=== PATIENT | female | born 1980 | race Caucasian/White ===

== ENCOUNTER 2018-08-23 02:10 | Inpatient (IN) | payer OTHER ==
[2018-08-23] MEDS ORDERED: Nalbuphine 20 MG/ML 1 ML Syringe IVPUSH PRN (02:36)
[2018-08-23] MEDS ORDERED: Sodium Chloride 0.9% 10 ML Syringe FLUSH PRN (02:42)
[2018-08-23] MEDS ORDERED: Lactated Ringers 1,000 ML IV SCH (02:45)
[2018-08-23] MEDS ORDERED: Oxytocin/Lactated Ringers 10 UNIT/1,000 ML BAG IV SCH (02:45)
[2018-08-23] MEDS ORDERED: Labetalol 100 MG Tab PO ONE (02:47)
--- NOTE | 2018-08-23 03:32 | PCM.LDHP ---
L&D History of Present Illness - General Date of Service: 08/23/18 Admit Problem/Dx: Patient Status Order with Admit Dx/Problem 08/23/18 02:44 Patient Status [ADT] Routine Admission Diagnosis/Problem Admission Diagnosis/Problem Source of Information: Patient History Limitations: Reports: No Limitations - History of Present Illness Introduction:: 38-year-old 006 SONI 09/03/18 estimated gestational age 38 weeks and 3 days, patient presented to labor and delivery with history of ruptured membranes spontaneously at 00 45 hours on 08/23/18. At that time when presenting to labor and delivery cervix 3-4 cm dilated. Cephalic presentation by RN exam. Patient has history of allergies to penicillin and sulfa drugs. Patient has been taking Wellbutrin XL 300 mg at at bedtime Patient blood pressure elevated upon presentation to labor and delivery labetalol 100 mg by mouth ordered. Normal reflexes. Patient has been taking metformin but no history of gestational diabetes 500 mg CR daily She is also been taking iron tablets by mouth daily and Colace 1 time per day. Also taking vitamins, she has taken Zofran earlier in for nausea and vomiting. Probiotic also taken but patient 1 capsule by mouth daily and taking vitamin D ergocalciferol 5000 units by mouth once daily and albuterol inhaler as needed 02/27/18 blood type O-positive antibody screen negative hemoglobin/hematocrit 12.3/36.2, rubella immune, test for syphilis IgG and IgM nonreactive, hepatitis B surface antigen nonreactive. HIV negative. TSH and free T4 within normal limits. 06/09/18 hemoglobin 11.7 platelets 320,000, 1 hour OB glucose screen 99, antibody screen negative group B strep negative. Past medical history of abnormal Pap smear. Also history of anemia and urinary stone and depression and obesity and pyelonephritis in the past. Unspecified asthma as well. No history of MRSA Past surgical history includes tonsillectomy and 04/15/2012 Plan delivery. Improves with: Reports: None Worsens with: Reports: None Associated Symptoms: Reports: N - Related Data Allergies/Adverse Reactions: Allergies Allergy/AdvReac Type Severity Reaction Status Date / Time Penicillins Allergy Rash Verified 01/06/16 10:06 Sulfa (Sulfonamide Allergy Rash Verified 01/06/16 10:06 Antibiotics) Home Medications: Home Meds Cefdinir [Omnicef] 300 mg PO 01/06/16 [History] Cholecalciferol (Vitamin D3) [Vitamin D] 01/06/16 [History] Cyanocobalamin (Vitamin B12) [Vitamin B12] 01/06/16 [History] Docusate Sodium [Colace] 100 mg PO DAILY 01/06/16 [History] Folic Acid 0.8 mg PO 01/06/16 [History] Iron 325 mg PO 01/06/16 [History] Pnv95/Iron Fum/Folic Acid [ Caplet] 01/06/16 [History] buPROPion HCl [Wellbutrin Xl] 300 mg PO 01/06/16 [History] metFORMIN [Glucophage XR] 500 mg PO DAILY 01/06/16 [History] Past Medical History Respiratory History: Reports: Asthma, Other (See Below) Other Respiratory History: excercise induced asthma Genitourinary History: Reports: Pyelonephritis, Renal Calculus FALL INTERN History: Reports: , Other (See Below) Other OB/BYN History: history abruptio placenta Abnormal PAP Psychiatric History: Reports: Anxiety, Depression Endocrine/Metabolic History: Reports: Diabetes, Gestational, Other (See Below) Other Endocrine/Metabolic History: with previous pregnancies Hematologic History: Reports: Anemia - Infectious Disease History Infectious Disease History: Reports: Chicken Pox - Past Surgical History HEENT Surgical History: Reports: Tonsillectomy Other HEENT Surgeries/Procedures: tonsillectomy 2011 Social & Family History - Family History Cardiac: Reports: Hypertension (Father, paternal grandfather, paternal uncle and paternal grandmother) Neurological: Reports: Alzheimers Disease (Maternal grandmother) Psychiatric: Reports: Depression (Patient and mother) Endocrine/Metabolic: Reports: Hypothyroidism (Mother) Oncologic: Reports: Colon (Paternal grandfather), Prostate (Paternal grandfather ) H&P Review of Systems - Review of Systems: Review Of Systems: See Below General: Reports: No Symptoms HEENT: Reports: No Symptoms Pulmonary: Reports: No Symptoms Cardiovascular: Reports: No Symptoms Gastrointestinal: Reports: No Symptoms Genitourinary: Reports: No Symptoms Musculoskeletal: Reports: No Symptoms Skin: Reports: No Symptoms Psychiatric: Reports: No Symptoms Neurological: Reports: No Symptoms Hematologic/Lymphatic: Reports: No Symptoms Immunologic: Reports: No Symptoms L&D Exam - Exam Exam: See Below - Vital Signs Vital Signs: Last Vital Signs Temp Pulse 102 H 08/23/18 03:15 Resp BP 154/108 H 08/23/18 03:15 Pulse Ox Weight: 266 lb - OB Specific Fundal Height In cm: 40 Contraction Duration (sec): 60 Contraction Frequency (min): 3 Contraction Intensity: Moderate to Strong Movement: Active Heart Tones: Present Heart Tones per Min: 140 (Cat I reactive) Presentation: Vertex Estimated Weight: 3500 g - Ruvalcaba Score Ruvalcaba Score Cervix Position: Posterior Ruvalcaba Score Consistency: Soft Ruvalcaba Score Effacement: 31-50% Ruvalcaba Score Dilation: 3-4 cm Ruvalcaba Score Infant's Station: -3 Ruvalcaba Score Total: 5 - Exam General: Alert, Oriented HEENT: Conjunctiva Clear, Mucosa Moist & [place], Pupils Equal Neck: Supple, Trachea Midline Lungs: Clear to Auscultation, Normal Respiratory Effort Cardiovascular: Regular Rate, Regular Rhythm GI/Abdominal Exam: Normal Bowel Sounds, Soft, Non-Tender Genitourinary: Normal external exam Extremities: Normal Inspection, Non-Tender, No Pedal Edema, Normal Capillary Refill Skin: Warm, Dry, Intact Neurological: Reflexes Equal Bilateral DTR: 2+: Patella (L), Patella (R) Psychiatric: Alert, Normal Affect, Normal Mood - Patient Data Lab Results Last 24 hrs: Laboratory Results - last 24 hr 08/23/18 Range/Units 03:05 WBC 17.43 H (3.98-10.04) K/mm3 RBC 4.19 (3.98-5.22) M/mm3 Hgb 12.1 (11.2-15.7) gm/L Hct 37.1 (34.1-44.9) % MCV 88.5 (79.4-94.8) fl MCH 28.9 (25.6-32.2) pg MCHC 32.6 (32.2-35.5) g/dl RDW Std Deviation 44.7 (36.4-46.3) fL Plt Count 349 (182-369) K/mm3 MPV 8.9 L (9.4-12.3) fl Neut % (Auto) 71.1 (34.0-71.1) % Lymph % (Auto) 20.8 (19.3-51.7) % [place] % (Auto) 6.8 (4.7-12.5) % Eos % (Auto) 0.9 (0.7-5.8) Baso % (Auto) 0.1 (0.1-1.2) % Neut # (Auto) 12.39 H (1.56-6.13) K/mm3 Lymph # (Auto) 3.62 (1.18-3.74) K/mm3 [place] # (Auto) 1.18 H (0.24-0.36) K/mm3 Eos # (Auto) 0.16 (0.04-0.36) K/mm3 Baso # (Auto) 0.02 (0.01-0.08) K/mm3 Result Diagrams: 08/23/18 03:05 08/23/18 03:05 - Problem List (1) 38 weeks gestation of SNOMED Code(s): 95494618 ICD Code: Z3A.38 - 38 WEEKS GESTATION OF Status: Acute Current Visit: Yes Problem Details: Plan delivery (2) Grand multiparity in labor and delivery, antepartum SNOMED Code(s): 495661732, 597029373 ICD Code: O09.40 - SUPERVISION OF W GRAND MULTIPARITY, UNSP TRIMESTER Status: Acute Current Visit: Yes (3) Rupture of membranes SNOMED Code(s): 067797546 ICD Code: ASD8721 - Status: Acute Current Visit: Yes (4) History of depression SNOMED Code(s): 922881445 ICD Code: Z86.59 - PERSONAL HISTORY OF OTHER MENTAL AND BEHAVIORAL DISORDERS Status: Acute Current Visit: Yes Problem List Initiated/Reviewed/Updated: No Orders Last 24hrs: Active Orders 24 hr Category Date Time Status Patient Status [ADT] Routine ADT 08/23/18 02:44 Active Activity as Tolerated [RC] PFP Care 08/23/18 02:37 Active Communication Order [RC] ASDIRECTED Care 08/23/18 02:37 Active Heart Tones [RC] ASDIRECTED Care 08/23/18 02:45 Active Non Stress Test [RC] PER UNIT ROUTINE Care 08/23/18 02:37 Active Notify Provider [RC] PFP Care 08/23/18 02:37 Active Notify Provider [RC] PRN Care 08/23/18 02:37 Active Peripheral IV Care [RC] . DIRECTED Care 08/23/18 02:45 Active Vital Signs [RC] PER UNIT ROUTINE Care 08/23/18 02:37 Active ALANINE AMINOTRANSFERASE,ALT [CHEM] Stat Lab 08/23/18 03:05 Received ASPARTATE AMNIOTRANSFERASE,AST [CHEM] Stat Lab 08/23/18 03:05 Received BLOOD UREA NITROGEN,BUN [CHEM] Stat Lab 08/23/18 03:05 Received CREATININE W/GFR [CHEM] Stat Lab 08/23/18 03:05 Received LACTATE DEHYDROGENASE,LDH [CHEM] Stat Lab 08/23/18 03:05 Received RAPID PLASMA REAGIN,RPR [CHEM] Routine Lab 08/23/18 03:05 Received URIC ACID [CHEM] Stat Lab 08/23/18 03:05 Received Lactated Ringers [Ringers, Lactated] 1,000 ml Med 08/23/18 02:45 Active IV ASDIRECTED Nalbuphine [Nubain] Med 08/23/18 02:36 Active 10 mg IVPUSH Q2H PRN Oxytocin/Lactated Ringers [Pitocin in LR 10 Units/1,000 Med 08/23/18 02:45 Active ML] 10 unit in 1,000 ml IV .CONTINUOUS Sodium Chloride 0.9% [Saline Flush] Med 08/23/18 02:42 Active 10 ml FLUSH ASDIRECTED PRN Electronic Heart Tones Ext w TOCO [WOMSER] Oth 08/23/18 02:37 Ordered Routine Electronic Heart Tones Internal [WOMSER] Per Unit Oth 08/23/18 02:37 Ordered Routine PIH Panel [OM.PC] Stat Oth 08/23/18 02:42 Ordered Peripheral IV Insertion Adult [OM.PC] Routine Oth 08/23/18 02:37 Ordered Resuscitation Status Routine Resus Stat 08/23/18 02:36 Ordered Medication Orders Lactated Ringer's (Ringers, Lactated) 1,000 mls @ 100 mls/hr IV ASDIRECTED DEEPTI Oxytocin/Lactated Ringer's (Pitocin In Lr 10 Units/1,000 Ml) 10 unit in 1,000 mls @ 500 mls/hr IV .CONTINUOUS DEEPTI Nalbuphine HCl (Nubain) 10 mg IVPUSH Q2H PRN PRN Reason: pain Sodium Chloride (Saline Flush) 10 ml FLUSH ASDIRECTED PRN PRN Reason: Keep Vein Open
--- NOTE | 2018-08-23 04:00 | PCM.DEL ---
L & D Note - General Info Date of Service: 08/23/18 Mother's Due Date: 09/03/18 - Delivery Note Labor: Spontaneous Delivery Outcome: Livebirth (Female liveborn Friday08/23/18 at 0343 hrs. KAVIN under no anesthesia and no lacerations Apgars 8/9 weight 3700 g 8 pounds 2.5 ounces nuchal cord 1 reduced over the head easily. No lacerations) Delivery Method: Spontaneous Vaginal Delivery-Single Infant Delivery Mode: Spontaneous Presentation: Left Occiput Anterior (KAVIN) Nuchal Cord: Present (Times one reduced over the head without difficulty) Prep: Povidone-Iodine (Betadine Anesthesia Type: None Episiotomy Type: None Laceration: None Placenta: Intact, Spontaneous (Spontaneous delivery at 0344 hrs. examined and tacked discarded) Cord: 3 Vessels Estimated Blood Loss: 150 Resuscitation Needed: No [place]: Bulb Syringe, Stimulated, Warmed, [place] Used, Warmer Used Provider: Nabeel Rivera Score 1 min: 8 Score 5 min: 9 - General Info Date of Service: 08/23/18 Functional Status: Reports: Pain Controlled - Review of Systems General: Reports: No Symptoms HEENT: Reports: No Symptoms Pulmonary: Reports: No Symptoms Cardiovascular: Reports: No Symptoms Gastrointestinal: Reports: No Symptoms Genitourinary: Reports: No Symptoms Musculoskeletal: Reports: No Symptoms Skin: Reports: No Symptoms Neurological: Reports: No Symptoms Psychiatric: Reports: No Symptoms - Patient Data Vitals - Most Recent: Last Vital Signs Temp Pulse 102 H 08/23/18 03:15 Resp BP 154/108 H 08/23/18 03:15 Pulse Ox Weight - Most Recent: 266 lb Lab Results Last 24 Hours: Laboratory Results - last 24 hr 08/23/18 08/23/18 Range/Units 03:05 03:05 WBC 17.43 H (3.98-10.04) K/mm3 RBC 4.19 (3.98-5.22) M/mm3 Hgb 12.1 (11.2-15.7) gm/L Hct 37.1 (34.1-44.9) % MCV 88.5 (79.4-94.8) fl MCH 28.9 (25.6-32.2) pg MCHC 32.6 (32.2-35.5) g/dl RDW Std Deviation 44.7 (36.4-46.3) fL Plt Count 349 (182-369) K/mm3 MPV 8.9 L (9.4-12.3) fl Neut % (Auto) 71.1 (34.0-71.1) % Lymph % (Auto) 20.8 (19.3-51.7) % [place] % (Auto) 6.8 (4.7-12.5) % Eos % (Auto) 0.9 (0.7-5.8) Baso % (Auto) 0.1 (0.1-1.2) % Neut # (Auto) 12.39 H (1.56-6.13) K/mm3 Lymph # (Auto) 3.62 (1.18-3.74) K/mm3 [place] # (Auto) 1.18 H (0.24-0.36) K/mm3 Eos # (Auto) 0.16 (0.04-0.36) K/mm3 Baso # (Auto) 0.02 (0.01-0.08) K/mm3 BUN 8 (7-18) mg/dL Creatinine 0.9 (0.55-1.02) mg/dL Est Cr Clr Drug Dosing 86.33 mL/min Estimated GFR (MDRD) > 60 (>60) mL/min Uric Acid 5.5 (2.6-6.0) mg/dL AST 34 (15-37) U/L ALT 38 (14-59) U/L Lactate Dehydrogenase 247 H (81-234) U/L Med Orders - Current: Current Medications Lactated Ringer's (Ringers, Lactated) 1,000 mls @ 100 mls/hr IV ASDIRECTED DEEPTI Oxytocin/Lactated Ringer's (Pitocin In Lr 10 Units/1,000 Ml) 10 unit in 1,000 mls @ 500 mls/hr IV .CONTINUOUS DEEPTI Nalbuphine HCl (Nubain) 10 mg IVPUSH Q2H PRN PRN Reason: pain Sodium Chloride (Saline Flush) 10 ml FLUSH ASDIRECTED PRN PRN Reason: Keep Vein Open Discontinued Medications Labetalol HCl (Normodyne) 100 mg PO ONETIME ONE Stop: 08/23/18 02:48 Last Admin: 08/23/18 03:15 Dose: 100 mg - Exam General: Alert, Oriented HEENT: Pupils Equal, Mucous Membr. Moist/[place] Neck: Supple Lungs: Clear to Auscultation, Normal Respiratory Effort Cardiovascular: Regular Rate, Regular Rhythm GI/Abdominal Exam: Normal Bowel Sounds, Soft, Non-Tender (Female) Exam: Normal External Exam Extremities: Normal Inspection, Normal Range of Motion, Non-Tender, No Pedal Edema, Normal Capillary Refill Skin: Warm, Dry, Intact Neurological: No New Focal Deficit Psy/Mental Status: Alert, Normal Affect, Normal Mood - Problem List & Annotations (1) 38 weeks gestation of SNOMED Code(s): 10194755 Code(s): Z3A.38 - 38 WEEKS GESTATION OF Status: Acute Current Visit: Yes Annotation/Comment:: Plan delivery (2) Grand multiparity in labor and delivery, antepartum SNOMED Code(s): 985591748, 433392622 Code(s): O09.40 - SUPERVISION OF W GRAND MULTIPARITY, UNSP TRIMESTER Status: Acute Current Visit: Yes (3) Rupture of membranes SNOMED Code(s): 053673059 Code(s): OJZ9709 - Status: Acute Current Visit: Yes (4) History of depression SNOMED Code(s): 213763633 Code(s): Z86.59 - PERSONAL HISTORY OF OTHER MENTAL AND BEHAVIORAL DISORDERS Status: Acute Current Visit: Yes (5) Nuchal cord without compression, delivered, current hospitalization SNOMED Code(s): 86607708, 610476898 Code(s): O69.81X0 - LABOR AND DEL COMP BY CORD AROUND NECK, W/O COMPRSN, UNSP Status: Acute Current Visit: Yes - Problem List Review Problem List Initiated/Reviewed/Updated: No - My Orders Last 24 Hours: My Active Orders 08/23/18 02:36 Nalbuphine [Nubain] 10 mg IVPUSH Q2H PRN Resuscitation Status Routine 08/23/18 02:37 Activity as Tolerated [RC] PFP Communication Order [RC] ASDIRECTED Non Stress Test [RC] PER UNIT ROUTINE Notify Provider [RC] PFP Notify Provider [RC] PRN Vital Signs [RC] PER UNIT ROUTINE Electronic Heart Tones Ext w TOCO [WOMSER] Routine Electronic Heart Tones Internal [WOMSER] Per Unit Routine Peripheral IV Insertion Adult [OM.PC] Routine 08/23/18 02:42 Sodium Chloride 0.9% [Saline Flush] 10 ml FLUSH ASDIRECTED PRN PIH Panel [OM.PC] Stat 08/23/18 02:44 Patient Status [ADT] Routine 08/23/18 02:45 Heart Tones [RC] ASDIRECTED Peripheral IV Care [RC] . DIRECTED Lactated Ringers [Ringers, Lactated] 1,000 ml IV ASDIRECTED Oxytocin/Lactated Ringers [Pitocin in LR 10 Units/1,000 ML] 10 unit in 1,000 ml IV .CONTINUOUS 08/23/18 03:05 RAPID PLASMA REAGIN,RPR [CHEM] Routine - Assessment Assessment:: Uncomplicated vaginal delivery spontaneous with nuchal cord times one the lacerations under no anesthesia per patient's choice. - Plan Plan:: Routine care.
[2018-08-23] MEDS: Ibuprofen 600 MG Tab PO PRN ×4 (04:11→19:56)
[2018-08-23] MEDS ORDERED: Acetaminophen 325 MG Tab PO PRN (04:22)
[2018-08-23] MEDS ORDERED: Witch Hazel Medicated Pads 40/Jar TOP PRN (04:22)
[2018-08-23] MEDS ORDERED: Lanolin 100% Cream 7 GM Tube TOP PRN (04:22)
[2018-08-23] MEDS ORDERED: Docusate Sodium 100 MG Cap PO PRN (04:22)
[2018-08-23] MEDS ORDERED: Benzocaine/Menthol 20%-0.5% Spray 56 GM Canister TOP PRN (04:22)
[2018-08-23] MEDS: Labetalol 100 MG Tab PO SCH (16:00)
[2018-08-23] MEDS ORDERED: METFORMIN 500 MG PO SCH (21:00)
[2018-08-23] MEDS ORDERED: Non-Formulary Medication 1 Each (Bupropion Hcl 300 MG) PO SCH (21:00)
[2018-08-24] MEDS: Labetalol 100 MG Tab PO SCH (03:00)
[2018-08-24] MEDS: Ibuprofen 600 MG Tab PO PRN ×2 (03:08→07:07)
--- NOTE | 2018-08-24 08:53 | PCM.DCSUM1 ---
Discharge Summary - Hospital Course Free Text/Narrative:: [facility] LIVE L/D Delivery Note Patient Name: PARAG LEDESMA Date of : 82 Patient Status: Inpatient Attending Provider: Nabeel Rivera Date: 08/23/18 03:54 Initialization Date: 08/23/18 03:54 L & D Note - General Info Date of Service: 08/23/18 Mother's Due Date: 09/03/18 - Delivery Note Labor: Spontaneous Delivery Outcome: Livebirth (Female liveborn Friday08/23/18 at 0343 hrs. KAVIN under no anesthesia and no lacerations Apgars 8/9 weight 3700 g 8 pounds 2.5 ounces nuchal cord 1 reduced over the head easily. No lacerations) Delivery Method: Spontaneous Vaginal Delivery-Single Delivery Mode: Spontaneous Presentation: Left Occiput Anterior (KAVIN) Nuchal Cord: Present (Times one reduced over the head without difficulty) Prep: Povidone-Iodine (Betadine Anesthesia Type: None Episiotomy Type: None Laceration: None Placenta: Intact, Spontaneous (Spontaneous delivery at 0344 hrs. examined and tacked discarded) Cord: 3 Vessels Estimated Blood Loss: 150 Resuscitation Needed: No [place]: Bulb Syringe, Stimulated, Warmed, [place] Used, Warmer Used Provider: Nabeel Rivera Score 1 min: 8 Score 5 min: 9 - General Info Date of Service: 08/23/18 Functional Status: Reports: Pain Controlled - Review of Systems General: Reports: No Symptoms HEENT: Reports: No Symptoms Pulmonary: Reports: No Symptoms Cardiovascular: Reports: No Symptoms Gastrointestinal: Reports: No Symptoms Genitourinary: Reports: No Symptoms Musculoskeletal: Reports: No Symptoms Skin: Reports: No Symptoms Neurological: Reports: No Symptoms Psychiatric: Reports: No Symptoms - Patient Data Vitals - Most Recent: Last Vital Signs Temp Pulse 102 H 08/23/18 03:15 Resp BP 154/108 H 08/23/18 03:15 Pulse Ox Weight - Most Recent: 266 lb Lab Results Last 24 Hours: Laboratory Results - last 24 hr 08/23/18 08/23/18 Range/Units 03:05 03:05 WBC 17.43 H (3.98-10.04) K/mm3 RBC 4.19 (3.98-5.22) M/mm3 Hgb 12.1 (11.2-15.7) gm/L Hct 37.1 (34.1-44.9) % MCV 88.5 (79.4-94.8) fl MCH 28.9 (25.6-32.2) pg MCHC 32.6 (32.2-35.5) g/dl RDW Std Deviation 44.7 (36.4-46.3) fL Plt Count 349 (182-369) K/mm3 MPV 8.9 L (9.4-12.3) fl Neut % (Auto) 71.1 (34.0-71.1) % Lymph % (Auto) 20.8 (19.3-51.7) % [place] % (Auto) 6.8 (4.7-12.5) % Eos % (Auto) 0.9 (0.7-5.8) Baso % (Auto) 0.1 (0.1-1.2) % Neut # (Auto) 12.39 H (1.56-6.13) K/mm3 Lymph # (Auto) 3.62 (1.18-3.74) K/mm3 [place] # (Auto) 1.18 H (0.24-0.36) K/mm3 Eos # (Auto) 0.16 (0.04-0.36) K/mm3 Baso # (Auto) 0.02 (0.01-0.08) K/mm3 BUN 8 (7-18) mg/dL Creatinine 0.9 (0.55-1.02) mg/dL Est Cr Clr Drug Dosing 86.33 mL/min Estimated GFR (MDRD) > 60 (>60) mL/min Uric Acid 5.5 (2.6-6.0) mg/dL AST 34 (15-37) U/L ALT 38 (14-59) U/L Lactate Dehydrogenase 247 H (81-234) U/L Med Orders - Current: Current Medications Lactated Ringer's (Ringers, Lactated) 1,000 mls @ 100 mls/hr IV ASDIRECTED DEEPTI Oxytocin/Lactated Ringer's (Pitocin In Lr 10 Units/1,000 Ml) 10 unit in 1,000 mls @ 500 mls/hr IV .CONTINUOUS DEEPTI Nalbuphine HCl (Nubain) 10 mg IVPUSH Q2H PRN PRN Reason: pain Sodium Chloride (Saline Flush) 10 ml FLUSH ASDIRECTED PRN PRN Reason: Keep Vein Open Discontinued Medications Labetalol HCl (Normodyne) 100 mg PO ONETIME ONE Stop: 08/23/18 02:48 Last Admin: 08/23/18 03:15 Dose: 100 mg - Exam General: Alert, Oriented HEENT: Pupils Equal, Mucous Membr. Moist/[place] Neck: Supple Lungs: Clear to Auscultation, Normal Respiratory Effort Cardiovascular: Regular Rate, Regular Rhythm GI/Abdominal Exam: Normal Bowel Sounds, Soft, Non-Tender (Female) Exam: Normal External Exam Extremities: Normal Inspection, Normal Range of Motion, Non-Tender, No Pedal Edema, Normal Capillary Refill Skin: Warm, Dry, Intact Neurological: No New Focal Deficit Psy/Mental Status: Alert, Normal Affect, Normal Mood - Problem List & Annotations (1) 38 weeks gestation of SNOMED Code(s): 03722838 Code(s): Z3A.38 - 38 WEEKS GESTATION OF Status: Acute Current Visit: Yes Annotation/Comment:: Plan delivery (2) Grand multiparity in labor and delivery, antepartum SNOMED Code(s): 903723719, 868902586 Code(s): O09.40 - SUPERVISION OF W GRAND MULTIPARITY, UNSP TRIMESTER Status: Acute Current Visit: Yes (3) Rupture of membranes SNOMED Code(s): 923352175 Code(s): TZX5910 - Status: Acute Current Visit: Yes (4) History of depression SNOMED Code(s): 907939154 Code(s): Z86.59 - PERSONAL HISTORY OF OTHER MENTAL AND BEHAVIORAL DISORDERS Status: Acute Current Visit: Yes (5) Nuchal cord without compression, delivered, current hospitalization SNOMED Code(s): 86858080, 137473491 Code(s): O69.81X0 - LABOR AND DEL COMP BY CORD AROUND NECK, W/O COMPRSN, UNSP Status: Acute Current Visit: Yes - Problem List Review Problem List Initiated/Reviewed/Updated: No - My Orders Last 24 Hours: My Active Orders 08/23/18 02:36 Nalbuphine [Nubain] 10 mg IVPUSH Q2H PRN Resuscitation Status Routine 08/23/18 02:37 Activity as Tolerated [RC] PFP Communication Order [RC] ASDIRECTED Non Stress Test [RC] PER UNIT ROUTINE Notify Provider [RC] PFP Notify Provider [RC] PRN Vital Signs [RC] PER UNIT ROUTINE Electronic Heart Tones Ext w TOCO [WOMSER] Routine Electronic Heart Tones Internal [WOMSER] Per Unit Routine Peripheral IV Insertion Adult [OM.PC] Routine 08/23/18 02:42 Sodium Chloride 0.9% [Saline Flush] 10 ml FLUSH ASDIRECTED PRN PIH Panel [OM.PC] Stat 08/23/18 02:44 Patient Status [ADT] Routine 08/23/18 02:45 Heart Tones [RC] ASDIRECTED Peripheral IV Care [RC] . DIRECTED Lactated Ringers [Ringers, Lactated] 1,000 ml IV ASDIRECTED Oxytocin/Lactated Ringers [Pitocin in LR 10 Units/1,000 ML] 10 unit in 1,000 ml IV .CONTINUOUS 08/23/18 03:05 RAPID PLASMA REAGIN,RPR [CHEM] Routine - Assessment Assessment:: Uncomplicated vaginal delivery spontaneous with nuchal cord times one the lacerations under no anesthesia per patient's choice. - Plan Plan:: Routine care. HPI Initial Comments: [facility] LIVE L/D Delivery Note Patient Name: PARAG LEDESMA Date of : 82 Patient Status: Inpatient Attending Provider: Nabeel Rivera Date: 08/23/18 03:54 Initialization Date: 08/23/18 03:54 L & D Note - General Info Date of Service: 08/23/18 Mother's Due Date: 09/03/18 - Delivery Note Labor: Spontaneous Delivery Outcome: Livebirth (Female liveborn Friday08/23/18 at 0343 hrs. KAVIN under no anesthesia and no lacerations Apgars 8/9 weight 3700 g 8 pounds 2.5 ounces nuchal cord 1 reduced over the head easily. No lacerations) Delivery Method: Spontaneous Vaginal Delivery-Single Infant Delivery Mode: Spontaneous Presentation: Left Occiput Anterior (KAVIN) Nuchal Cord: Present (Times one reduced over the head without difficulty) Prep: Povidone-Iodine (Betadine Anesthesia Type: None Episiotomy Type: None Laceration: None Placenta: Intact, Spontaneous (Spontaneous delivery at 0344 hrs. examined and tacked discarded) Cord: 3 Vessels Estimated Blood Loss: 150 Resuscitation Needed: No : Bulb Syringe, Stimulated, Warmed, [place] Used, Warmer Used Provider: Nabeel Rivera Score 1 min: 8 Score 5 min: 9 - General Info Date of Service: 08/23/18 Functional Status: Reports: Pain Controlled - Review of Systems General: Reports: No Symptoms HEENT: Reports: No Symptoms Pulmonary: Reports: No Symptoms Cardiovascular: Reports: No Symptoms Gastrointestinal: Reports: No Symptoms Genitourinary: Reports: No Symptoms Musculoskeletal: Reports: No Symptoms Skin: Reports: No Symptoms Neurological: Reports: No Symptoms Psychiatric: Reports: No Symptoms - Patient Data Vitals - Most Recent: Last Vital Signs Temp Pulse 102 H 08/23/18 03:15 Resp BP 154/108 H 08/23/18 03:15 Pulse Ox Weight - Most Recent: 266 lb Lab Results Last 24 Hours: Laboratory Results - last 24 hr 08/23/18 08/23/18 Range/Units 03:05 03:05 WBC 17.43 H (3.98-10.04) K/mm3 RBC 4.19 (3.98-5.22) M/mm3 Hgb 12.1 (11.2-15.7) gm/L Hct 37.1 (34.1-44.9) % MCV 88.5 (79.4-94.8) fl MCH 28.9 (25.6-32.2) pg MCHC 32.6 (32.2-35.5) g/dl RDW Std Deviation 44.7 (36.4-46.3) fL Plt Count 349 (182-369) K/mm3 MPV 8.9 L (9.4-12.3) fl Neut % (Auto) 71.1 (34.0-71.1) % Lymph % (Auto) 20.8 (19.3-51.7) % [place] % (Auto) 6.8 (4.7-12.5) % Eos % (Auto) 0.9 (0.7-5.8) Baso % (Auto) 0.1 (0.1-1.2) % Neut # (Auto) 12.39 H (1.56-6.13) K/mm3 Lymph # (Auto) 3.62 (1.18-3.74) K/mm3 [place] # (Auto) 1.18 H (0.24-0.36) K/mm3 Eos # (Auto) 0.16 (0.04-0.36) K/mm3 Baso # (Auto) 0.02 (0.01-0.08) K/mm3 BUN 8 (7-18) mg/dL Creatinine 0.9 (0.55-1.02) mg/dL Est Cr Clr Drug Dosing 86.33 mL/min Estimated GFR (MDRD) > 60 (>60) mL/min Uric Acid 5.5 (2.6-6.0) mg/dL AST 34 (15-37) U/L ALT 38 (14-59) U/L Lactate Dehydrogenase 247 H (81-234) U/L Med Orders - Current: Current Medications Lactated Ringer's (Ringers, Lactated) 1,000 mls @ 100 mls/hr IV ASDIRECTED DEEPTI Oxytocin/Lactated Ringer's (Pitocin In Lr 10 Units/1,000 Ml) 10 unit in 1,000 mls @ 500 mls/hr IV .CONTINUOUS DEEPTI Nalbuphine HCl (Nubain) 10 mg IVPUSH Q2H PRN PRN Reason: pain Sodium Chloride (Saline Flush) 10 ml FLUSH ASDIRECTED PRN PRN Reason: Keep Vein Open Discontinued Medications Labetalol HCl (Normodyne) 100 mg PO ONETIME ONE Stop: 08/23/18 02:48 Last Admin: 08/23/18 03:15 Dose: 100 mg - Exam General: Alert, Oriented HEENT: Pupils Equal, Mucous Membr. Moist/[place] Neck: Supple Lungs: Clear to Auscultation, Normal Respiratory Effort Cardiovascular: Regular Rate, Regular Rhythm GI/Abdominal Exam: Normal Bowel Sounds, Soft, Non-Tender (Female) Exam: Normal External Exam Extremities: Normal Inspection, Normal Range of Motion, Non-Tender, No Pedal Edema, Normal Capillary Refill Skin: Warm, Dry, Intact Neurological: No New Focal Deficit Psy/Mental Status: Alert, Normal Affect, Normal Mood - Problem List & Annotations (1) 38 weeks gestation of SNOMED Code(s): 84947433 Code(s): Z3A.38 - 38 WEEKS GESTATION OF Status: Acute Current Visit: Yes Annotation/Comment:: Plan delivery (2) Grand multiparity in labor and delivery, antepartum SNOMED Code(s): 956912365, 936008343 Code(s): O09.40 - SUPERVISION OF W GRAND MULTIPARITY, UNSP TRIMESTER Status: Acute Current Visit: Yes (3) Rupture of membranes SNOMED Code(s): 686405921 Code(s): LFW7013 - Status: Acute Current Visit: Yes (4) History of depression SNOMED Code(s): 742092435 Code(s): Z86.59 - PERSONAL HISTORY OF OTHER MENTAL AND BEHAVIORAL DISORDERS Status: Acute Current Visit: Yes (5) Nuchal cord without compression, delivered, current hospitalization SNOMED Code(s): 97191601, 939927276 Code(s): O69.81X0 - LABOR AND DEL COMP BY CORD AROUND NECK, W/O COMPRSN, UNSP Status: Acute Current Visit: Yes - Problem List Review Problem List Initiated/Reviewed/Updated: No - My Orders Last 24 Hours: My Active Orders 08/23/18 02:36 Nalbuphine [Nubain] 10 mg IVPUSH Q2H PRN Resuscitation Status Routine 08/23/18 02:37 Activity as Tolerated [RC] PFP Communication Order [RC] ASDIRECTED Non Stress Test [RC] PER UNIT ROUTINE Notify Provider [RC] PFP Notify Provider [RC] PRN Vital Signs [RC] PER UNIT ROUTINE Electronic Heart Tones Ext w TOCO [WOMSER] Routine Electronic Heart Tones Internal [WOMSER] Per Unit Routine Peripheral IV Insertion Adult [OM.PC] Routine 08/23/18 02:42 Sodium Chloride 0.9% [Saline Flush] 10 ml FLUSH ASDIRECTED PRN PIH Panel [OM.PC] Stat 08/23/18 02:44 Patient Status [ADT] Routine 08/23/18 02:45 Heart Tones [RC] ASDIRECTED Peripheral IV Care [RC] . DIRECTED Lactated Ringers [Ringers, Lactated] 1,000 ml IV ASDIRECTED Oxytocin/Lactated Ringers [Pitocin in LR 10 Units/1,000 ML] 10 unit in 1,000 ml IV .CONTINUOUS 08/23/18 03:05 RAPID PLASMA REAGIN,RPR [CHEM] Routine - Assessment Assessment:: Uncomplicated vaginal delivery spontaneous with nuchal cord times one the lacerations under no anesthesia per patient's choice. - Plan Plan:: Routine care. Brief History: [facility] LIVE . L/D Delivery Note. Patient Name: PARAG LEDESMAical Record Number: [id number]. Date of : Patient Status: Inpatient. Attending Provider: Nabeel Riveraount Number: [id number]. Date: 08/23/18 03:54Initialization Date: 08/23/18 03:54. L & D Note. - General Info. Date of Service: 08/23/18. Mother's Due Date: 09/03/18. - Delivery Note. Labor: Spontaneous. Delivery Outcome: Livebirth ( Female liveborn Friday08/23/18 at 0343 hrs. KAVIN under no anesthesia and no lacerations Apgars 8/9 weight 3700 g 8 pounds 2.5 ounces nuchal cord 1 reduced over the head easily. No lacerations). Infant Delivery Method: Spontaneous Vaginal Delivery-Single. Delivery Mode: Spontaneous. Presentation : Left Occiput Anterior (KAVIN). Nuchal Cord: Present (Times one reduced over the head without difficulty). Prep: Povidone-Iodine (Betadine. Anesthesia Type : None. Episiotomy Type: None. Laceration: None. Placenta: Intact, Spontaneous (Spontaneous delivery at 0344 hrs. examined and tacked discarded). Cord: 3 Vessels. Estimated Blood Loss: 150. Resuscitation Needed: No. : Bulb Syringe, Stimulated, Warmed, [place] Used, Warmer Used. Provider: Nabeel Rivera. Score 1 min: 8. Score 5 min: 9. - General Info. Date of Service: 08/23/18. Functional Status: Reports: Pain Controlled. - Review of Systems. General: Reports: No Symptoms. HEENT: Reports: No Symptoms. Pulmonary: Reports: No Symptoms. Cardiovascular: Reports : No Symptoms. Gastrointestinal: Reports: No Symptoms. Genitourinary: Reports : No Symptoms. Musculoskeletal: Reports: No Symptoms. Skin: Reports: No Symptoms. Neurological: Reports: No Symptoms. Psychiatric: Reports: No Symptoms. - Patient Data. Vitals - Most Recent: Last Vital Signs. Temp. Pulse 102 H 08/23/18 03:15. Resp. BP 154/108 H 08/23/18 03:15. Pulse Ox. Weight - Most Recent: 266 lb. Lab Results Last 24 Hours: Laboratory Results - last 24 hr. 08/24/1903Range/Units. 03:0503:05. WBC 17.43 H (3.98-10.04 ) K/mm3. RBC 4.19 (3.98-5.22) M/mm3. Hgb 12.1 (11.2-15.7) gm/L. Hct 37.1 ( 34.1-44.9) %. MCV 88.5 (79.4-94.8) fl. MCH 28.9 (25.6-32.2) pg. MCHC 32.6 (32.2-35.5) g/dl. RDW Std Deviation 44.7 (36.4-46.3) fL. Plt Count 349 (182- 369) K/mm3. MPV 8.9 L (9.4-12.3) fl. Neut % (Auto) 71.1 (34.0-71.1) %. Lymph % (Auto) 20.8 (19.3-51.7) %. [place] % (Auto) 6.8 (4.7-12.5) %. Eos % ( Auto) 0.9 (0.7-5.8). Baso % (Auto) 0.1 (0.1-1.2) %. Neut # (Auto) 12.39 H ( 1.56-6.13) K/mm3. Lymph # (Auto) 3.62 (1.18-3.74) K/mm3. [place] # (Auto) 1.18 H (0.24-0.36) K/mm3. Eos # (Auto) 0.16 (0.04-0.36) K/mm3. Baso # (Auto) 0.02 (0.01-0.08) K/mm3. BUN 8 (7-18) mg/dL. Creatinine 0.9 (0.55-1.02) mg/ dL. Est Cr Clr Drug Dosing 86.33 mL/min. Estimated GFR (MDRD) > 60 (>60) mL/ min. Uric Acid 5.5 (2.6-6.0) mg/dL. AST 34 (15-37) U/L. ALT 38 (14-59) U/ L. Lactate Dehydrogenase 247 H (81-234) U/L. Med Orders - Current: Current Medications. Lactated Ringer's (Ringers, Lactated) 1,000 mls @ 100 mls/hr IV ASDIRECTED DEEPTI. Oxytocin/Lactated Ringer's (Pitocin In Lr 10 Units/1,000 Ml) 10 unit in 1,000 mls @ 500 mls/hr IV .CONTINUOUS DEEPTI. Nalbuphine HCl (Nubain) 10 mg IVPUSH Q2H PRN. PRN Reason: pain. Sodium Chloride (Saline Flush) 10 ml FLUSH ASDIRECTED PRN. PRN Reason: Keep Vein Open. Discontinued Medications. Labetalol HCl (Normodyne) 100 mg PO ONETIME ONE. Stop: 08/23/18 02:48. Last Admin: 08/23/18 03:15 Dose: 100 mg. - Exam. General: Alert, Oriented. HEENT : Pupils Equal, Mucous Membr. Moist/[place]. Neck: Supple. Lungs: Clear to Auscultation, Normal Respiratory Effort. Cardiovascular: Regular Rate, Regular Rhythm. GI/Abdominal Exam: Normal Bowel Sounds, Soft, Non-Tender. (Female) Exam: Normal External Exam. Extremities: Normal Inspection, Normal Range of Motion, Non-Tender, No Pedal Edema, Normal Capillary Refill. Skin: Warm, Dry, Intact. Neurological: No New Focal Deficit. Psy/Mental Status: Alert, Normal Affect, Normal Mood. - Problem List & Annotations. (1) 38 weeks gestation of . SNOMED Code(s): 82983120. Code(s): Z3A.38 - 38 WEEKS GESTATION OF Status: Acute Current Visit: Yes Annotation/Comment:: Plan delivery. (2) Grand multiparity in labor and delivery, antepartum. SNOMED Code (s): 351220210, 936662505. Code(s): O09.40 - SUPERVISION OF W GRAND MULTIPARITY, UNSP TRIMESTER Status: Acute Current Visit: Yes. (3) Rupture of membranes. SNOMED Code(s): 695157953. Code(s): LDI5999 - Status: Acute Current Visit: Yes. (4) History of depression. SNOMED Code(s): 844482410. Code(s): Z86.59 - PERSONAL HISTORY OF OTHER MENTAL AND BEHAVIORAL DISORDERS Status: Acute Current Visit: Yes. (5) Nuchal cord without compression, delivered, current hospitalization. SNOMED Code(s): 72649117, 611994256. Code(s): O69.81X0 - LABOR AND DEL COMP BY CORD AROUND NECK, W/O COMPRSN, UNSP Status: Acute Current Visit: Yes. - Problem List Review. Problem List Initiated/Reviewed/Updated: No. - My Orders. Last 24 Hours: My Active Orders. 08/23/18 02:36. Nalbuphine [Nubain] 10 mg IVPUSH Q2H PRN. Resuscitation Status Routine. 08/23/18 02:37. Activity as Tolerated [RC] PFP. Communication Order [RC] ASDIRECTED. Non Stress Test [RC] PER UNIT ROUTINE. Notify Provider [RC] PFP. Notify Provider [RC] PRN. Vital Signs [RC ] PER UNIT ROUTINE. Electronic Heart Tones Ext w TOCO [WOMSER] Routine. Electronic Heart Tones Internal [WOMSER] Per Unit Routine. Peripheral IV Insertion Adult [OM.PC] Routine. 08/23/18 02:42. Sodium Chloride 0.9% [Saline Flush] 10 ml FLUSH ASDIRECTED PRN. PIH Panel [OM.PC] Stat. 08/23/18 02:44. Patient Status [ADT] Routine. 08/23/18 02:45. Heart Tones [RC] ASDIRECTED. Peripheral IV Care [RC] . DIRECTED. Lactated Ringers [Ringers, Lactated] 1,000 ml IV ASDIRECTED. Oxytocin/Lactated Ringers [Pitocin in LR 10 Units/1,000 ML] 10 unit in 1,000 ml IV .CONTINUOUS. 08/23/18 03:05. RAPID PLASMA REAGIN,RPR [CHEM] Routine. - Assessment. Assessment:: Uncomplicated vaginal delivery spontaneous with nuchal cord times one the lacerations under no anesthesia per patient's choice. - Plan. Plan:: Routine care. Diagnosis: Stroke: No - Discharge Data Discharge Date: 08/24/18 Discharge Disposition: Home, Self-Care 01 Condition: Good - Discharge Diagnosis/Problem(s) (1) 38 weeks gestation of SNOMED Code(s): 00159170 ICD Code: Z3A.38 - 38 WEEKS GESTATION OF Status: Acute Current Visit: Yes Problem Details: Plan delivery (2) Grand multiparity in labor and delivery, antepartum SNOMED Code(s): 149578924, 507637209 ICD Code: O09.40 - SUPERVISION OF W GRAND MULTIPARITY, UNSP TRIMESTER Status: Acute Current Visit: Yes (3) Rupture of membranes SNOMED Code(s): 589393291 ICD Code: RLH9329 - Status: Acute Current Visit: Yes (4) History of depression SNOMED Code(s): 974039401 ICD Code: Z86.59 - PERSONAL HISTORY OF OTHER MENTAL AND BEHAVIORAL DISORDERS Status: Acute Current Visit: Yes (5) Nuchal cord without compression, delivered, current hospitalization SNOMED Code(s): 99640636, 808426253 ICD Code: O69.81X0 - LABOR AND DEL COMP BY CORD AROUND NECK, W/O COMPRSN, UNSP Status: Acute Current Visit: Yes (6) Transient hypertension of , antepartum SNOMED Code(s): 342779528 ICD Code: O13.9 - GESTATIONAL HTN W/O SIGNIFICANT PROTEINURIA, UNSP TRIMESTER Status: Acute Current Visit: Yes - Patient Summary/Data Complications: None Consults: None Hospital Course: Uneventful - Patient Instructions Diet: Usual Diet as Tolerated Driving: Do Not Drive (48 hours) Showering/Bathing: May Shower Notify Provider of: Fever, Increased Pain, Swelling and Redness, Drainage, Nausea and/or Vomiting - Discharge Plan *PRESCRIPTION DRUG MONITORING PROGRAM REVIEWED*: No *COPY OF PRESCRIPTION DRUG MONITORING REPORT IN PATIENT MELANIE: No Home Medications: Home Meds Cholecalciferol (Vitamin D3) [Vitamin D] 01/06/16 [History] Cyanocobalamin (Vitamin B12) [Vitamin B12] 01/06/16 [History] Docusate Sodium [Colace] 100 mg PO DAILY 09/03/16 [History] Folic Acid 0.8 mg PO 01/06/16 [History] Iron 325 mg PO 01/06/16 [History] Pnv95/Iron Fum/Folic Acid [ Caplet] 01/06/16 [History] buPROPion HCl [Wellbutrin Xl] 300 mg PO 01/06/16 [History] metFORMIN [Glucophage XR] 500 mg PO DAILY 01/06/16 [History] Acetaminophen [Tylenol] 650 mg PO Q6H PRN tablet 08/24/18 [Rx] Benzocaine/Menthol [Dermoplast Pain Relief [place]] 1 spray TOP ASDIRECTED PRN canister 08/24/18 [Rx] Docusate Sodium [Colace] 100 mg PO BID PRN cap 08/24/18 [Rx] Ibuprofen [Motrin] 600 mg PO Q6H PRN tablet 08/24/18 [Rx] Lanolin [Lansinoh HPA] 1 applic TOP ASDIRECTED PRN #1 tube 08/24/18 [Rx] Witjessica Lori [Tucks] 1 pad TOP ASDIRECTED PRN pad 08/24/18 [Rx] Referrals: Delaney Mondragon MD [Primary Care Provider] - (To call for follow-up appointment) - Discharge Summary/Plan Comment DC Time >30 min.: No - Patient Data Vitals - Most Recent: Last Vital Signs Temp 97.3 F 08/24/18 03:09 Pulse 85 08/24/18 03:09 Resp 14 08/24/18 03:09 BP 142/61 H 08/24/18 03:09 Pulse Ox 98 08/24/18 03:09 Weight - Most Recent: 266 lb Lab Results - Last 24 hrs: Laboratory Results - last 24 hr 08/23/18 08/24/18 Range/Units 03:05 06:26 WBC 11.97 H (3.98-10.04) K/mm3 RBC 3.59 L (3.98-5.22) M/mm3 Hgb 10.3 L D (11.2-15.7) gm/L Hct 32.6 L (34.1-44.9) % MCV 90.8 (79.4-94.8) fl MCH 28.7 (25.6-32.2) pg MCHC 31.6 L (32.2-35.5) g/dl RDW Std Deviation 45.5 (36.4-46.3) fL Plt Count 258 (182-369) K/mm3 MPV 9.1 L (9.4-12.3) fl Neut % (Auto) 72.2 H (34.0-71.1) % Lymph % (Auto) 16.9 L (19.3-51.7) % [place] % (Auto) 8.2 (4.7-12.5) % Eos % (Auto) 2.1 (0.7-5.8) Baso % (Auto) 0.2 (0.1-1.2) % Neut # (Auto) 8.65 H (1.56-6.13) K/mm3 Lymph # (Auto) 2.02 (1.18-3.74) K/mm3 [place] # (Auto) 0.98 H (0.24-0.36) K/mm3 Eos # (Auto) 0.25 (0.04-0.36) K/mm3 Baso # (Auto) 0.02 (0.01-0.08) K/mm3 RPR Non-reactive (NONREACTIVE) Med Orders - Current: Current Medications Acetaminophen (Tylenol) 650 mg PO Q4H PRN PRN Reason: mild pain or fever Benzocaine/Menthol (Dermoplast Pain Relief [place]) 0 gm TOP ASDIRECTED PRN PRN Reason: Perineal Comfort Measure Docusate Sodium (Colace) 100 mg PO BID PRN PRN Reason: Constipation Emollient Ointment (Lansinoh Hpa) 0 gm TOP ASDIRECTED PRN PRN Reason: Sore Nipples Ibuprofen (Motrin) 600 mg PO Q4H PRN PRN Reason: Mild pain or fever Last Admin: 08/24/18 07:07 Dose: 600 mg Labetalol HCl (Normodyne) 100 mg PO Q12H DEEPTI Last Admin: 08/24/18 03:00 Dose: Not Given Deon Sandoval (Tucks) 1 pad TOP ASDIRECTED PRN PRN Reason: Perineal Comfort Measure Discontinued Medications Lactated Ringer's (Ringers, Lactated) 1,000 mls @ 100 mls/hr IV ASDIRECTED DEEPTI Oxytocin/Lactated Ringer's (Pitocin In Lr 10 Units/1,000 Ml) 10 unit in 1,000 mls @ 500 mls/hr IV .CONTINUOUS DEEPTI Last Admin: 08/23/18 03:45 Dose: 500 mls/hr Labetalol HCl (Normodyne) 100 mg PO ONETIME ONE Stop: 08/23/18 02:48 Last Admin: 08/23/18 03:15 Dose: 100 mg Nalbuphine HCl (Nubain) 10 mg IVPUSH Q2H PRN PRN Reason: pain Non-Formulary Medication (Bupropion Hcl) 300 mg PO DAILY DEEPTI Last Admin: 08/24/18 07:32 Dose: Not Given Non-Formulary Medication (Metformin) 500 mg PO DAILY DEEPTI Last Admin: 08/24/18 07:32 Dose: Not Given Sodium Chloride (Saline Flush) 10 ml FLUSH ASDIRECTED PRN PRN Reason: Keep Vein Open
[2018-08-24 09:46] VITALS: BP 137/79
== END 2018-08-24 10:40 | disposition home or self-care (01) | DRG 807 ==
LOC: JD.OB 02:10 → JD.OBCHECK 02:10 → JD.OB 02:44 → JD.OBCHECK 02:44 → OBSVTOIN 03:43 → JD.OB 03:44
PROVIDERS: ADMIT Obstetrics & Gynecology; ATTEND Obstetrics & Gynecology
PROC: 10E0XZZ Delivery of Products of Conception, External Approach (ICD-10-PCS; principal; 2018-08-23)
DX: O24.425 Gestational diabetes mellitus in childbirth, controlled by oral hypoglycemic drugs (principal); Z37.0 Single live birth; Z3A.38 38 weeks gestation of pregnancy; O69.81X0 Labor and delivery complicated by cord around neck, without compression, not applicable or unspecified; O13.4 Gestational [pregnancy-induced] hypertension without significant proteinuria, complicating childbirth; O99.344 Other mental disorders complicating childbirth; F32.9 Major depressive disorder, single episode, unspecified; F41.9 Anxiety disorder, unspecified; O99.02 Anemia complicating childbirth; D64.9 Anemia, unspecified; O99.214 Obesity complicating childbirth; E66.9 Obesity, unspecified; O99.52 Diseases of the respiratory system complicating childbirth; J45.990 Exercise induced bronchospasm; Z88.0 Allergy status to penicillin; Z88.2 Allergy status to sulfonamides; Z79.899 Other long term (current) drug therapy; Z87.442 Personal history of urinary calculi
CPT/HCPCS: 36415; 59025; 59409; 82565; 83615; 84450; 84460; 84520; 84550; 85025; 86592; A9270-GY; J2590